=== PATIENT | female | born 1990 | race Caucasian/White ===

== ENCOUNTER 2023-09-25 12:27 | Outpatient (CLI) | payer OTHER ==
[2023-09-25 13:16] LABS: Basophils % (A) 0 %; Eosinophils # (A) 0.1 k/uL (0-0.7); Eosinophils % (A) 1 %; HCT 37.5 % (34.0-46.0); HGB 13.2 gm/dL (11.4-16.0); Lymphocytes # (A) 1.1 k/uL (1.0-4.8); Lymphocytes % (A) 10 %; MCHC 35.3 g/dL (31.0-37.0); MCV 90.5 fL (80.0-100.0); Mean Platelet Volume 7.9; Monocytes # (A) 0.5 k/uL (0-1.0); Monocytes % (A) 4 %; Neutrophils # (A) 9.8 k/uL (1.3-7.7); Neutrophils % (A) 84 %; Platelet Count 188 k/uL (150-450); Poikilocytosis Slight; RBC 4.15 m/uL (3.80-5.40); RDW 13.6 % (11.5-15.5); WBC 11.7 k/uL (3.8-10.6)
[2023-09-25 13:39] LABS: Appearance,Urine Clear (Clear); Bilirubin,Urine Negative (Negative); Blood,Urine Negative (Negative); Color,Urine Yellow; Glucose,Urine (UA) Negative (Negative); Ketones,Urine Negative (Negative); Leukocyte Esterase,Urine Small (Negative); Nitrite,Urine Negative (Negative); Protein,Urine Negative (Negative); Urobilinogen,Urine 0.2 mg/dL (<2.0)
[2023-09-25 13:41] LABS: Bacteria,Urine Rare /hpf; Mucus,Urine Rare /hpf; RBC,Urine <1 /hpf (0-5); Squamous Epithelial Cell,Urine 2 /hpf (0-4); WBC,Urine 1 /hpf (0-5)
[2023-09-25 13:47] LABS: Uric Acid 4.3 mg/dL (3.7-7.4)
[2023-09-25 13:55] LABS: Creatinine,Urine Random 33.6 mg/dL; Protein/Creatinine Ratio,Urine 0.268
[2023-09-25 14:35] VITALS: BP 130/73; PULSE 86; RESP 18
== END 2023-09-25 14:14 | disposition home or self-care (01) ==
LOC: FBPOP 12:27
PROVIDERS: ATTEND Obstetrics & Gynecology Obstetrics
DX: O24.419 Gestational diabetes mellitus in pregnancy, unspecified control (principal); Z3A.36 36 weeks gestation of pregnancy
CPT/HCPCS: 36415; 59025; 81001; 82570; 83615; 84156; 84450; 84460; 84550; 85025

== ENCOUNTER 2023-10-02 11:53 | Inpatient (IN) | payer OTHER ==
[2023-10-02] MEDS ORDERED: OXYTOCIN 10 UNIT/ML 1 ML VIAL IM PRN (12:26)
[2023-10-02] MEDS ORDERED: miSOPROStoL 200 MCG TAB PO PRN (12:26)
[2023-10-02] MEDS ORDERED: CARBOPROST TROMETHAMINE 250 MCG/ML 1 ML AMP IM PRN (12:26)
[2023-10-02] MEDS ORDERED: TERBUTALINE 1 MG/ML VIAL SQ PRN (12:26)
[2023-10-02] MEDS ORDERED: LIDOCAINE 0.5% (PF) 5 MG/ML (50 ML SDV) SQ PRN (12:26)
[2023-10-02] MEDS ORDERED: METHYLERGONOVINE 0.2 MG/ML 1 ML AMP IM PRN (12:26)
[2023-10-02] MEDS ORDERED: TRANEXAMIC 1,000 MG/100ML-NACL 1,000 MG in EMPTY BAG 1 BAG IV PRN (12:26)
[2023-10-02] MEDS ORDERED: OXYTOCIN 30 UNITS/500 ML NS 30 UNIT in SALINE 1 500ML.BAG IV SCH (12:30)
[2023-10-02 13:09] LABS: Basophils % (A) 0 %; Eosinophils % (A) 0 %; HGB 13.1 gm/dL (11.4-16.0); Hyperchromasia Slight; Lymphocytes # (A) 1.4 k/uL (1.0-4.8); Lymphocytes % (A) 12 %; MCH 32.5 pg (25.0-35.0); MCHC 36.3 g/dL (31.0-37.0); MCV 89.6 fL (80.0-100.0); Mean Platelet Volume 7.6; Monocytes # (A) 0.3 k/uL (0-1.0); Monocytes % (A) 3 %; Neutrophils # (A) 9.5 k/uL (1.3-7.7); Neutrophils % (A) 84 %; Platelet Count 174 k/uL (150-450); Poikilocytosis Slight; RBC 4.02 m/uL (3.80-5.40); RDW 13.8 % (11.5-15.5); WBC 11.3 k/uL (3.8-10.6)
[2023-10-02] MEDS: LACTATED RINGERS 1,000 ML IV SCH ×3 (13:09→21:22)
[2023-10-02] MEDS ORDERED: NALBUPHINE 10 MG/ML (10 ML MDV) IV PRN (13:18)
[2023-10-02] MEDS ORDERED: AMPICILLIN 2,000 MG in SODIUM CHLORIDE 0.9% 100 ML IVPB STA (13:29)
[2023-10-02 13:32] LABS: ALT 15 U/L (4-34); AST 23 U/L (14-36); African American GFR (CKD) >90 (>60 ml/min/1.73 sqM); Blood Urea Nitrogen 9 mg/dL (7-17); LDH 268 U/L (120-246); Non-African American GFR(CKD) >90 (>60 ml/min/1.73 sqM); Uric Acid 4.9 mg/dL (3.7-7.4)
[2023-10-02 13:45] LABS: INR 0.8 (<1.2); Prothrombin Time 9.6 sec (10.0-12.5)
[2023-10-02 13:50] LABS: Partial Thromboplastin Time 20.6 sec (22.0-30.0)
[2023-10-02 15:33] LABS: Glucose,Whole Blood 76 mg/dL (70-110)
[2023-10-02] MEDS: AMPICILLIN 1,000 MG in SODIUM CHLORIDE 0.9% 50 ML IVPB SCH (17:47)
[2023-10-02] MEDS ORDERED: CITRIC ACID-SODIUM CITRATE 15 ML CUP PO ONE (18:18)
[2023-10-02] MEDS ORDERED: LACTATED RINGERS 1,000 ML IV ONE (18:18)
[2023-10-02] MEDS ORDERED: MORPHINE SULFATE (PF) 0.3 MG/0.3 ML SYR ONE (19:06)
[2023-10-02] MEDS ORDERED: ePHEDrine 50 MG/ML 1 ML VIAL ONE (19:06)
[2023-10-02] MEDS ORDERED: OXYTOCIN 30 UNITS/500 ML NS BAG IV ONE (19:06)
[2023-10-02] MEDS ORDERED: ONDANSETRON 4 MG/2 ML VIAL ONE (19:06)
[2023-10-02] MEDS ORDERED: PHENYLEPHRINE-0.9% NACL SYG 1,000 MCG/10 ML SYRINGE ONE (19:06)
--- NOTE | 2023-10-02 19:57 | P.HPOB ---
History of Present Illness H&P Date: 10/02/23 Chief Complaint: IUP @ 37 5/7 weeks GDM, Gestational HTN 32 yo at 37 5/7 weeks that presents to labor and delivery for induction of labor secondary to gestational diabetes A1, gestational hypertension. Patient has had negative preeclampsia labs. Patient denies signs or symptoms of preeclampsia. Patient has been seen roughly 2 times in triage for worsening blood pressures at home, negative pre eclampsia work up. Blood pressures typically 140s over 90s. Patient notes good movement states she will have an occasional contraction denies vaginal bleeding or loss of fluid. On bloodwork this patient is a blood type of A-, rubella status immune, hepatitis B surface antigen negative, HIV negative, RPR is nonreactive, group beta strep culture is positive. Review of Systems Constitutional: Denies chills, Denies fatigue, Denies fever Ears, nose, mouth and throat: Denies headache Cardiovascular: Reports leg edema Respiratory: Denies dyspnea Gastrointestinal: Denies constipation, Denies diarrhea, Denies nausea, Denies vomiting Genitourinary: Reports Past Medical History History of Any Multi-Drug Resistant Organisms: None Reported Smoking Status: Former smoker - Past Family History Mother History Unknown: Yes Father History Unknown: Yes Medications and Allergies Home Medications Medication Instructions Recorded Confirmed Type Vit No.179/Iron/Folic 1 tab PO DAILY 09/25/23 10/02/23 History [ Tablet] Allergies Allergy/AdvReac Type Severity Reaction Status Date / Time No Known Allergies Allergy Verified 10/02/23 12:24 Exam Osteopathic Statement: *. No significant issues noted on an osteopathic structural exam other than those noted in the History and Physical/Consult. Intake and Output 10/01/23 10/02/23 10/02/23 22:59 06:59 14:59 Other: Weight 112.037 kg Targeted physical exam is performed in this date and rn pacu a well-nourished well-developed female in no acute distress, breathing is noted to be no nlabored, heart has a regular rate and rhythm, abdomen is gravid and large for gestational age, ultrasound completed on 09/25 revealed an estimated weight of 8 lbs. 7 oz. Cervical exam is noted to be 3 cm 70% effaced at -3 station amniotomy is performed and clear fluid was obtained. heart tones returned be category 1 and she is zachary irregularly. Results Result Diagrams: 10/02/23 12:52 10/02/23 12:52 Abnormal Lab Results - Last 24 Hours (Table) 10/02/23 Range/Units 12:52 WBC 11.3 H (3.8-10.6) k/uL Neutrophils # 9.5 H (1.3-7.7) k/uL Assessment and Plan (1) 37 weeks gestation of Current Visit: Yes Status: Acute Code(s): Z3A.37 - 37 WEEKS GESTATION OF SNOMED Code(s): 37141719 (2) Gestational HTN Current Visit: Yes Status: Acute Code(s): O13.9 - GESTATIONAL HTN W/O SIGNIFICANT PROTEINURIA, UNSP TRIMESTER SNOMED Code(s): 44825028 (3) GDM, class A2 Current Visit: Yes Status: Acute Code(s): O24.419 - GESTATIONAL DIABETES MELLITUS IN , UNSP CONTROL SNOMED Code(s): 50341861 (4) GDM (gestational diabetes mellitus), class A1 Current Visit: Yes Status: Acute Code(s): O24.410 - GESTATIONAL DIABETES MELLITUS IN , DIET CONTROLLED SNOMED Code(s): 01498729 Plan: 32-year-old at 37-5/7 weeks presents for induction of labor secondary to gestational hypertension, GDM A2. Patient has had blood sugars that have been controlled with metformin. Pitocin induction of labor was discussed with patient and it is begun per hospital protocol. Options for analgesia are discussed including Nubain, nitrous, epidural. Patient states understanding and all questions are answered.
[2023-10-02] MEDS ORDERED: diphenhydrAMINE 25 MG CAP PO PRN (20:02)
[2023-10-02] MEDS ORDERED: diphenhydrAMINE 50 MG CAP PO PRN (20:02)
[2023-10-02] MEDS ORDERED: ONDANSETRON 4 MG/2 ML VIAL IVP PRN (20:02)
[2023-10-02] MEDS ORDERED: SIMETHICONE 80 MG CHEWABLE PO PRN (20:02)
[2023-10-02] MEDS ORDERED: diphenhydrAMINE 50 MG/ML 1 ML VIAL IVP PRN ×2 (20:02)
[2023-10-02] MEDS ORDERED: METOCLOPRAMIDE 5 MG/ML 2 ML VIAL IVP PRN (20:02)
[2023-10-02] MEDS ORDERED: NALOXONE 0.4 MG/ML 1 ML VIAL IV PRN (20:02)
[2023-10-02] MEDS ORDERED: ZOLPIDEM 5 MG TAB PO PRN (20:02)
--- NOTE | 2023-10-02 20:04 | P.OP ---
Date of Procedure: 10/02/23 Preoperative Diagnosis: IUP at 37-5/7 weeks, GDM, gestational hypertension, arrest of first stage of labor, patient request for primary Postoperative Diagnosis: Same Procedure(s) Performed: Primary low transverse section Anesthesia: spinal Surgeon: Marion Mejía Silica Filter Operator #1: Navin Perry Estimated Blood Loss (ml): 449 Pathology: other (Placenta) Condition: stable Disposition: observation Indications for Procedure: 32-year-old 1 para 0 at 37-5/7 weeks' noted gestational diabetes. Patient has been being monitored for gestational hypertension elevated blood pressures were noted 140s over 90s. Pre-[place] labs are noted to be negative. Induction of labor was begun for gestational hypertension. Patient has been minimal change throughout the day and is requesting primary . Operative Findings: Viable male infant delivered at 1928, OP presentation, weight of 7 lbs. 11 oz., Apgars of 9 and 9 at one and 5 minutes respectively Arcuate shaped uterus, normal ovaries bilaterally Description of Procedure: The patient was prepped and draped in the usual fashion after spinal anesthesia was administered by the anesthesia department. A Pfannenstiel incision was made and extended of the abdominal cavity without difficulty. The bladder peritoneum was elevated and incised and reflected distally. A 2 cm incision was made in the transverse plane of the lower uterine segment to enter the uterus at which time clear fluid was noted. The incision was extended in both directions bluntly. The head was encountered within the field and delivered up and through the incision where the nose and mouth were thoroughly suctioned. Remainder of the infant was delivered onto the surgical field where the cord was doubly clamped, cut, and the infant was passed for resuscitative measures with weight and Apgars as noted above. The placenta was delivered manually, intact, and was grossly normal with a grossly normal three-vessel cord. The uterus was exteriorized and the interior cavity of the uterus swept of any remaining placental and membranous fragments with a laparotomy sponge. The margins of the incision were grasped with Allis clamps and the incision closed in 2 layers. First layer was a running locking layer of 0 chromic catgut from margin to margin followed by a second layer of imbricating 0 chromic catgut from margin to margin. Any small points of bleeding were then made hemostatic with the Bovie. Once hemostasis was achieved, the posterior cul-de-sac was suctioned with a guard and the uterine and ovarian findings are as noted above. The uterus was replaced within the abdominal cavity and the gutters swept of any remaining blood fluid or clot. The incision was again reexamined and hemostasis was noted to be excellent. Any small point of bleeding were made hemostatic with the Bovie. Once hemostasis was achieved the parietal peritoneum was loosely reapproximated. The layer of muscles were examined and made hemostatic with the Bovie. Attention was then turned to the fascia which was closed with 2 running stitches of 0 Vicryl proceeding from the lateral margins to the midpoint. The subcutaneous tissues were irrigated, made hemostatic with the Bovie, and reapproximated with a running stitch of 30 Vicryl. The skin was reapproximated with 4-0 Vicryl. Estimated blood loss for the case was approximately 449 mL. All sponge instrument and needle counts are correct. There were no complications. The patient tolerated the procedure well and proceeded to the recovery room in stable condition. Both mother and are resting comfortably in recovery.
[2023-10-02] MEDS ORDERED: ACETAMINOPHEN IV (For NPO) 1,000 MG in EMPTY BAG 1 BAG IVPB PRN (22:00)
[2023-10-02] MEDS: ACETAMINOPHEN TAB 500 MG TAB PO SCH (23:01)
[2023-10-02] MEDS: SENNOSIDES-DOCUSATE SODIUM 1 EACH TAB PO SCH (23:05)
[2023-10-03] MEDS ORDERED: IBUPROFEN IV 800 MG in SODIUM CHLORIDE 0.9% 250 ML IV PRN (01:00)
[2023-10-03] MEDS: IBUPROFEN 600 MG TAB PO SCH ×3 (02:54→16:11)
[2023-10-03] MEDS: ACETAMINOPHEN TAB 500 MG TAB PO SCH ×4 (04:40→20:41)
[2023-10-03] MEDS: LACTATED RINGERS 1,000 ML IV SCH ×2 (06:00)
[2023-10-03] MEDS: AMPICILLIN 1,000 MG in SODIUM CHLORIDE 0.9% 50 ML IVPB SCH (06:01)
--- NOTE | 2023-10-03 06:07 | P.PN ---
Progress Note - Text Progress Note Date: 10/03/23 Patient doing well. Ambulating w/o paresthesia or weakness. Denies headache. Mild pruritis. Pain well controlled with multimodal analgesia. Back - spinal site clean and dry. A/P POD #1 s/p with spinal duramorph - continue current regimen
[2023-10-03 06:55] LABS: Basophils % (A) 0 %; Eosinophils % (A) 0 %; HCT 31.6 % (34.0-46.0); HGB 11.5 gm/dL (11.4-16.0); Hyperchromasia Slight; Lymphocytes # (A) 1.2 k/uL (1.0-4.8); Lymphocytes % (A) 10 %; MCH 32.6 pg (25.0-35.0); MCHC 36.3 g/dL (31.0-37.0); Mean Platelet Volume 8.2; Monocytes # (A) 0.5 k/uL (0-1.0); Monocytes % (A) 4 %; Neutrophils # (A) 9.6 k/uL (1.3-7.7); Neutrophils % (A) 85 %; Platelet Count 156 k/uL (150-450); Poikilocytosis Slight; RBC 3.52 m/uL (3.80-5.40); RDW 13.9 % (11.5-15.5); WBC 11.4 k/uL (3.8-10.6)
--- NOTE | 2023-10-03 08:13 | P.PNOBGPC ---
Subjective - Subjective Principal diagnosis: Postop day 1, primary Interval history: Patient is doing well postoperatively. Awaiting spontaneous void. She states her pain is well-controlled. She is ambulating without difficulty. She is tolerating a regular diet without nausea or vomiting. She is breast-feeding. Patient reports: Reports appetite normal, Reports pain well controlled, Reports ambulating normally [place]: doing well Objective - Vital Signs Latest vital signs: Vital Signs Temp Pulse Resp BP Pulse Ox 10/03/23 04:00 97.7 F 74 16 122/81 99 10/02/23 22:09 80 16 131/73 99 10/02/23 21:39 80 16 131/73 99 10/02/23 20:59 79 16 133/75 98 10/02/23 20:45 83 16 119/61 97 10/02/23 20:31 89 16 117/60 95 10/02/23 20:24 81 16 115/56 98 10/02/23 20:09 96.5 F L 84 16 99/55 98 10/02/23 13:30 97.2 F L 88 16 147/87 98 Intake and Output 10/02/23 10/03/23 10/03/23 22:59 06:59 14:59 Output Total 826 1800 Balance -826 -1800 Output: Urine 1800 Output, Quantitative 826 Blood Loss Other: Voiding Method Indwelling Catheter - Exam Extremities: Present: normal, edema Abdomen: Present: normal appearance, soft Incision: Present: normal, dry, intact Uterus: Present: normal, firm - Labs Labs: Abnormal Lab Results - Last 24 Hours (Table) 10/02/23 10/02/23 10/02/23 Range/Units 12:52 12:52 12:52 WBC 11.3 H (3.8-10.6) k/uL RBC (3.80-5.40) m/uL Hct (34.0-46.0) % Neutrophils # 9.5 H (1.3-7.7) k/uL PT 9.6 L (10.0-12.5) sec APTT 20.6 L (22.0-30.0) sec Creatinine 0.51 L (0.52-1.04) mg/dL Lactate Dehydrogenase 268 H (120-246) U/L 10/03/23 Range/Units 06:33 WBC 11.4 H (3.8-10.6) k/uL RBC 3.52 L (3.80-5.40) m/uL Hct 31.6 L (34.0-46.0) % Neutrophils # 9.6 H (1.3-7.7) k/uL PT (10.0-12.5) sec APTT (22.0-30.0) sec Creatinine (0.52-1.04) mg/dL Lactate Dehydrogenase (120-246) U/L Assessment and Plan (1) 37 weeks gestation of Current Visit: Yes Status: Acute Code(s): Z3A.37 - 37 WEEKS GESTATION OF SNOMED Code(s): 28628397 (2) Gestational HTN Current Visit: Yes Status: Acute Code(s): O13.9 - GESTATIONAL HTN W/O SIGNIFICANT PROTEINURIA, UNSP TRIMESTER SNOMED Code(s): 33526529 (3) GDM, class A2 Current Visit: Yes Status: Acute Code(s): O24.419 - GESTATIONAL DIABETES MELLITUS IN , UNSP CONTROL SNOMED Code(s): 13757671 (4) GDM (gestational diabetes mellitus), class A1 Current Visit: Yes Status: Acute Code(s): O24.410 - GESTATIONAL DIABETES MELLITUS IN , DIET CONTROLLED SNOMED Code(s): 15321510 Plan: Patient is doing well postoperatively. Plan to continue routine postoperative care, awaiting spontaneous void. Anticipate discharge home tomorrow
[2023-10-03] MEDS: SENNOSIDES-DOCUSATE SODIUM 1 EACH TAB PO SCH ×2 (08:57→20:40)
[2023-10-03] MEDS: PRENATAL VIT-IRON-FOLIC ACID 1 EACH TABLET PO SCH (09:13)
[2023-10-03 19:00] VITALS: RESP 16
[2023-10-04] MEDS: IBUPROFEN 600 MG TAB PO SCH ×5 (00:17→18:51)
[2023-10-04] MEDS: ACETAMINOPHEN TAB 500 MG TAB PO SCH ×4 (04:06→22:27)
[2023-10-04] MEDS: SENNOSIDES-DOCUSATE SODIUM 1 EACH TAB PO SCH ×2 (08:07→22:25)
--- NOTE | 2023-10-04 09:27 | P.DS ---
Providers Date of admission: 10/02/23 11:53 Expected date of discharge: 10/04/23 Attending physician: Marion Mejía Primary care physician: Stated None - Discharge Diagnosis(es) (1) 37 weeks gestation of Current Visit: Yes Status: Acute (2) Gestational HTN Current Visit: Yes Status: Acute (3) GDM, class A2 Current Visit: Yes Status: Acute (4) GDM (gestational diabetes mellitus), class A1 Current Visit: Yes Status: Acute Hospital Course: This is a 32-year-old 1 now para 1 presented to labor and delivery at 37-5/7 weeks for induction of labor secondary to gestational hypertension, patient also had noted gestational diabetes. Patient had been being monitored for slightly elevated blood pressures 140s over 90s, preeclampsia labs have all been negative. Induction of labor was begun patient had noted minimal change of the day and requested primary . Patient was taken back to the operating suite where a primary was performed without difficulty. Patient delivered a viable male infant at 1928 occiput posterior presentation, weight of 7 lbs. 11 oz., Apgars of 9 and 9 at one and 5 minutes respectively. Infant arcuate shaped uterus was appreciated. Patient's postoperative course has been uneventful. This postoperative day #2 she is ambulating and voiding without difficulty. She is tolerating a regular diet without nausea or vomiting. She states her pain is well-controlled. She would like discharge home if possible, nursery does have some concerns regarding weight loss in her will await pediatric input. Patient Condition at Discharge: Good Plan - Discharge Summary New Discharge Prescriptions: No Action Vit No.179/Iron/Folic [ Tablet] 1 tab PO DAILY Discharge Medication List Vit No.179/Iron/Folic [ Tablet] 1 tab PO DAILY 09/25/23 [History] Follow up Appointment(s)/Referral(s): Marion Mejía DO [Doctor of Osteopathic Medicine] - 2 Weeks Patient Instructions/Handouts: (DC), (GEN) Activity/Diet/Wound Care/Special Instructions: No tub baths or intercourse until 6 weeks postoperatively. Patient is TO make a routine appointment in 2 weeks. Bleeding precautions are reviewed with patient. Postop pain control is discussed [id number] ibuprofen 600 mg or 3 tablets every 6 hours as needed for pain. Patient states understanding. Discharge Disposition: HOME SELF-CARE
[2023-10-04] MEDS: PRENATAL VIT-IRON-FOLIC ACID 1 EACH TABLET PO SCH (11:41)
[2023-10-05] MEDS: IBUPROFEN 600 MG TAB PO SCH ×2 (01:56→09:07)
[2023-10-05 02:54] VITALS: PULSE 88
[2023-10-05] MEDS: ACETAMINOPHEN TAB 500 MG TAB PO SCH ×2 (05:50→11:26)
[2023-10-05] MEDS: SENNOSIDES-DOCUSATE SODIUM 1 EACH TAB PO SCH (08:45)
[2023-10-05 08:49] VITALS: BP 120/66; TEMP 98
[2023-10-05] MEDS: PRENATAL VIT-IRON-FOLIC ACID 1 EACH TABLET PO SCH (09:10)
== END 2023-10-05 11:15 | disposition home or self-care (01) | DRG 788 ==
LOC: 4FBP 11:53
PROVIDERS: ADMIT Obstetrics & Gynecology Obstetrics; ATTEND Obstetrics & Gynecology Obstetrics
PROC: 3E033VJ Introduction of Other Hormone into Peripheral Vein, Percutaneous Approach (ICD-10-PCS; 2023-10-02)
PROC: 10D00Z1 Extraction of Products of Conception, Low, Open Approach (ICD-10-PCS; principal; 2023-10-02 19:25)
DX: O13.4 Gestational [pregnancy-induced] hypertension without significant proteinuria, complicating childbirth (principal); O24.420 Gestational diabetes mellitus in childbirth, diet controlled; L29.9 Pruritus, unspecified; O99.73 Diseases of the skin and subcutaneous tissue complicating the puerperium; Z37.0 Single live birth; Z28.310 Unvaccinated for COVID-19; Z3A.37 37 weeks gestation of pregnancy; Z79.899 Other long term (current) drug therapy; Z87.891 Personal history of nicotine dependence
CPT/HCPCS: 82565; 83615; 84450; 84460; 84520; 84550; 85025; 85610; 85730; 86850; 86870; 86880; 86900; 86901